=== PATIENT | female | born 1955 | race Asian ===

== ENCOUNTER 2021-09-20 11:45 | Emergency (ER) | payer OTHER ==
[~2021-09-20] VITALS: Ht 160 cm; Wt 81.6 kg
[2021-09-20 11:54] VITALS: BP_SYST 142
[2021-09-20] MEDS ORDERED: SOM350 PO (12:58)
[2021-09-20] MEDS ORDERED: IBUP-1969 PO (12:58)
[2021-09-20 13:05] VITALS: BP_SYST 133
== END 2021-09-20 13:05 | disposition home or self-care (01) ==
LOC: SED 11:45
DX: S00.83XA Contusion of other part of head, initial encounter (principal); R42 Dizziness and giddiness; Z88.5 Allergy status to narcotic agent; V49.49XA Driver injured in collision with other motor vehicles in traffic accident, initial encounter; Y93.89 Activity, other specified; Y92.89 Other specified places as the place of occurrence of the external cause; Y99.8 Other external cause status
CPT/HCPCS: 70450-TC; 71045; 76376; 99284